=== PATIENT | female | born 1940 | race Two or more races ===

== ENCOUNTER 2017-07-21 09:15 | Emergency (ER) | payer MEDICAID, MEDICARE, OTHER ==
[~2017-07-21] VITALS: Ht 152.4 cm; Wt 57.2 kg
[2017-07-21 09:24] VITALS: BP 167/93
[2017-07-21] MEDS ORDERED: KETOROLAC TROMETH 30 MG/ML 1ML VIAL IM ONE (11:00)
[2017-07-21] MEDS ORDERED: diphenhdrAMINE HCL 50 MG/1 ML VL IM ONE (11:00)
== END 2017-07-21 11:45 | disposition home or self-care (01) ==
LOC: ER 09:24
DX: R51 Headache (principal); F41.9 Anxiety disorder, unspecified; E11.9 Type 2 diabetes mellitus without complications; I10 Essential (primary) hypertension
CPT/HCPCS: 70450; 93005; 96372; 99284; J1200; J1885

== ENCOUNTER 2017-08-25 08:10 | Emergency (ER) | payer OTHER ==
[~2017-08-25] VITALS: Ht 152.4 cm; Wt 63.5 kg
[2017-08-25 08:28] VITALS: BP 146/79
[2017-08-25] MEDS ORDERED: NEOMYCIN-BACITRACIN-POLYM UNITDOSE PKG TOP OINT TOP ONE (09:45)
== END 2017-08-25 10:27 | disposition home or self-care (01) ==
LOC: ER 08:10 → EDBD 08:10 → ER 10:26
DX: R04.0 Epistaxis (principal); I10 Essential (primary) hypertension; E11.9 Type 2 diabetes mellitus without complications
CPT/HCPCS: 93005